=== PATIENT | female | born 1990 | race Caucasian/White ===

== ENCOUNTER 2017-03-26 13:46 | Emergency (ER) | payer SELFPAY ==
[~2017-03-26] VITALS: Ht 167.6 cm; Wt 50.0 kg
[2017-03-26 13:48] VITALS: TEMP 97.6
[2017-03-26] MEDS ORDERED: MICROGESTIN FE1 TA1 PO (13:57)
[2017-03-26] MEDS ORDERED: ALDACTONE50 MG PO (13:57)
[2017-03-26 15:16] VITALS: BP 134/95; PULSE 80
== END 2017-03-26 15:22 | disposition home or self-care (01) ==
LOC: COL.ER 13:46
DX: T43.621A Poisoning by amphetamines, accidental (unintentional), initial encounter (principal); F41.9 Anxiety disorder, unspecified
CPT/HCPCS: J7030

== ENCOUNTER 2017-05-30 12:17 | Outpatient (CLI) | payer OTHER ==
[~2017-05-30] VITALS: Ht 167.7 cm; Wt 48.6 kg
[~2017-05-30 12:17] MED LIST: ALDACTONE50 MG PO; MICROGESTIN FE1 TA1 PO
[2017-05-30 13:16] VITALS: BP 119/76; PULSE 83; TEMP 97.8
[2017-05-30 15:24] VITALS: BP 128/85; PULSE 75
[2017-05-30 15:45] VITALS: BP 136/86; PULSE 81
[2017-05-30 15:59] VITALS: BP 119/78; PULSE 79
[2017-05-30 16:24] VITALS: BP 120/84; PULSE 80
--- NOTE | 2017-05-30 16:25 | NUR ---
INT removed,catheter tip intact.Discharge instructions reviewed with pt.Pt verbalizes understanding.
--- NOTE | 2017-05-30 16:34 | NUR ---
Patient escorted out via wheelchair bythis nurse.
== END 2017-05-30 16:34 | disposition home or self-care (01) ==
LOC: EUO 12:17
DX: R55 Syncope and collapse (principal); R42 Dizziness and giddiness; R00.2 Palpitations; R00.0 Tachycardia, unspecified; R07.89 Other chest pain